=== PATIENT | male | born 1945 | race Caucasian/White ===

== ENCOUNTER → 2016-07-15 | Outpatient (CLI) | payer MEDICARE, OTHER ==
[~2016-07-15] MED LIST: AMLO2.5T PO; METO50 PO; SIMV20 PO; TAMS0.4C67 PO; ZOLP10TA3 PO
[2016-07-15 14:04] LABS: BACTERIA, URINE RARE /hpf; BLOOD, URINE MOD (NEG); GLUCOSE,URINE NEG (NEG); KETONE, URINE NEG (NEG); MUCUS URINE FEW /lpf (OCC); NITRITE,URINE NEG (NEG); PH, URINE 6.5 (5.0-8.5); URINE COLOR YELLOW (YELLW/STRAW)
== END ==
LOC: OLAB 10:59
DX: R31.0 Gross hematuria (principal); Z85.46 Personal history of malignant neoplasm of prostate; Z92.3 Personal history of irradiation
CPT/HCPCS: 81001; 87086

== ENCOUNTER → 2016-08-07 | Outpatient (CLI) | payer MEDICARE, OTHER ==
[2016-08-07 13:16] LABS: BICARBONATE 27.9 MEQ/L (21.0-32.0)
== END ==
LOC: OLAB 10:04
DX: R31.0 Gross hematuria (principal)
CPT/HCPCS: 36415; 80048

== ENCOUNTER 2017-09-07 09:56 | Day surgery (SDC) | payer MEDICARE, OTHER ==
[~2017-09-07] VITALS: Ht 182.9 cm; Wt 98.6 kg
[2017-09-07] MEDS ORDERED: SODIUM CHLOR 0.9% 1000 ML IV SCH (10:15)
[2017-09-07 10:19] VITALS: BP 116/69; PULSE 70; RESP 20; TEMP 97.8; O2SAT 99
[2017-09-07] MEDS ORDERED: LISI-515 PO (10:26)
[2017-09-07] MEDS ORDERED: AMLO5TAB2 PO (10:26)
[2017-09-07] MEDS ORDERED: TAMS5CAP PO (10:26)
[2017-09-07] MEDS ORDERED: METO50TA PO (10:26)
[2017-09-07] MEDS ORDERED: SIMV20TA PO (10:26)
[2017-09-07] MEDS ORDERED: MIDAZOLAM HCL 2 MG/2 ML VIAL ONE (11:23)
[2017-09-07] MEDS ORDERED: THROMBIN (TOPICAL) 5,000 UNIT VIAL ONE (12:00)
--- NOTE | 2017-09-07 12:22 | PD.RAD ---
Post CT Procedure Prog Note Pre Procedure Diagnosis: (1) Prostate cancer metastatic to bone Post Procedure Diagnosis: (1) Prostate cancer metastatic to bone Procedure Date: Sep 07, 2017 Supervising Radiologist: Gurinder William Anesthesia: Local, Analgesia, Conscious Sedation Plan of Activity Patient to Unit: [facility] Patient Condition: Good See PACS Report for procedural detail/treatment Biopsy Imaging Guidance: CT Biopsy Procedure: Bone (left ilium) Specimen: Core Biopsy Gurinder William MD Sep 07, 2017 12:22
[2017-09-07 12:30] VITALS: BP 137/79; PULSE 58; RESP 20; TEMP 97.3; O2SAT 99
[2017-09-07 12:45] VITALS: BP 155/92; PULSE 58; RESP 20; O2SAT 99
[2017-09-07 13:15] VITALS: BP 156/96; PULSE 60; RESP 20; O2SAT 98
[2017-09-07 14:15] VITALS: BP 146/99; PULSE 70; RESP 20; O2SAT 96
--- NOTE | 2017-09-07 15:25 | RADRPT ---
EXAM DATE/TIME: 09/07/2017 11:45 [place] COMPARISON: No previous studies available for comparison. INDICATIONS : Left iliac lesion. SEDATION TIME: 15 minutes BIOPSY SITE: Left MEDICATION(S): 1.) 2 mg midazolam (Versed) IV 2.) 100 mcg fentanyl (Sublimaze) IV DEVICE(S): 1.) Bone biopsy needle 10g MEDICAL HISTORY : Carcinoma, prostate. SURGICAL HISTORY : None. ENCOUNTER: Initial ACUITY: 1 day PAIN SCORE: 0/10 LOCATION: Left pelvis A total of one core specimen(s) were obtained and sent to the laboratory for pathologic evaluation. PROCEDURE: 1. CT guided bone deep biopsy. 2. Conscious sedation with continuous EKG and oximetry monitoring. 3. EKG and oximetry remained stable throughout the procedure. Prior to the procedure informed consent was obtained. Any appropriate prior imaging studies were rev iewed. Using automated exposure control and adjustment of the mA and/or kV according to patient size, radiat ion dose was kept as low as reasonably achievable to obtain optimal diagnostic quality images. DICOM format image data is available electronically for review and comparison. The site was prepped in a sterile fashion. Full sterile technique was used, including cap, mask, dannie rile gloves and gown and a large sterile sheet. Hand hygiene and 2% chlorhexidine and/or betadine/al cohol prep was utilized per protocol for cutaneous antisepsis. The skin and subcutaneous tissues wer e infiltrated with local anesthetic solution. With CT guidance the previously identified target was localized. Biopsy was performed using the presc ribed needle as above. Adequate hemostasis was obtained with compression at the puncture site. Follow-up CT scan reveals no hemorrhage. Because of the history of thrombocytopenia, the tract was cl osed with a thrombin and Gelfoam slurry. The patient tolerated the procedure well and there were no complications. The patient was returned to the Radiology Outpatient Unit in stable condition. CONCLUSION: Uncomplicated CT guided biopsy. Gurinder William MD on September 07, 2017 at 15:22 Board Certified Radiologist. This report was verified electronically.
== END 2017-09-07 14:15 | disposition home or self-care (01) ==
LOC: HRAD 09:56 → HRIP 09:57 → HRAD 14:15
PROVIDERS: ATTEND Internal Medicine Hematology & Oncology
DX: C79.51 Secondary malignant neoplasm of bone (principal); C61 Malignant neoplasm of prostate; D69.6 Thrombocytopenia, unspecified
CPT/HCPCS: 20225; 77012; 88305; 88311; 88341; 88342; 99152; J2250; J3010; J7030; 88307